=== PATIENT | female | born 1960 | race Hispanic/Latino ===

== ENCOUNTER 2019-11-27 07:14 | Day surgery (SDC) | payer OTHER ==
[~2019-11-27] VITALS: Ht 165.1 cm; Wt 90.7 kg
[~2019-11-27 07:14] MED LIST: CETI-89 PO; FLUT10SP NASAL; LEVO75TA4 PO; MOME13HF2 IH; MONT10TA21 PO; ROSU5TAB PO; SODIUM CHLORIDE 0.9% 1000ML 1,000 ML IV ONE
[2019-11-27 09:05] VITALS: BP 139/81
[2019-11-27] MEDS ORDERED: PROPOFOL 10 MG/ML 20ML VIAL IV ONE (10:07)
[2019-11-27 10:30] VITALS: BP 117/63
[2019-11-27 10:35] VITALS: BP 122/62
[2019-11-27 10:40] VITALS: BP 121/69
[2019-11-27 10:45] VITALS: BP 134/14
--- NOTE | 2019-11-27 11:00 | NUR ---
discharge pt and friend given d/c instructions. both voiced understanding. pt taken out via w/c in no distress.
== END 2019-11-27 11:10 | disposition home or self-care (01) ==
LOC: ENDO 07:14 → DAH 07:14 → ENDO 11:10
PROVIDERS: ATTEND Internal Medicine Gastroenterology
DX: Z12.11 Encounter for screening for malignant neoplasm of colon (principal); K29.50 Unspecified chronic gastritis without bleeding; K22.8 Other specified diseases of esophagus; R12 Heartburn; E78.2 Mixed hyperlipidemia; Z20.828 Contact with and (suspected) exposure to other viral communicable diseases; Z79.899 Other long term (current) drug therapy
CPT/HCPCS: 43239; 45378; A4215; A4221; A4222; A4223; A4606; A4620; A4657; A4663; C9803; J2704; J7030; U0003

== ENCOUNTER 2021-01-12 05:57 | Day surgery (SDC) | payer OTHER ==
[2021-01-06 16:10] LABS: BASOPHILS % (AUTO) 0.5 % (0.0-5.0); EOSINOPHILS % (AUTO) 4.6 % (0.0-8.0); HEMATOCRIT 43.6 % (36-48); LYMPHOCYTES % (AUTO) 32.8 % (21.0-51.0); MEAN CORPUSCULAR HEMOGLOBIN 28.2 pg (27.0-33.0); MEAN CORPUSCULAR HGB CONC 33.5 g/dL (32.0-36.0); MEAN CORPUSCULAR VOLUME 84.3 fL (79-99); MONOCYTES % (AUTO) 6.7 % (3.0-13.0); NEUTROPHILS % (AUTO) 55.3 % (40.0-77.0); PLATELET COUNT (AUTO) 284 K/uL (130-400); RED BLOOD CELL COUNT(AUTO) 5.17 MIL/uL (4.00-5.50); RED CELL DISTRIBUTION WIDTH 14.6 % (11.0-15.5); WHITE BLOOD COUNT (AUTO) 7.4 K/uL (4.8-10.8)
[2021-01-12] VITALS (24 sets, daily range): BP systolic 112–153; BP diastolic 49–79
[~2021-01-12] VITALS: Ht 165.1 cm; Wt 94.6 kg
[~2021-01-12 05:57] MED LIST changes: -FLUT10SP NASAL; +LEVO150 PO; -LEVO75TA4 PO; +LIOT5TAB11 PO; -MOME13HF2 IH; +ROSU40 PO; -ROSU5TAB PO; +SEMA14TA PO; -SODIUM CHLORIDE 0.9% 1000ML 1,000 ML IV ONE
[2021-01-12] MEDS ORDERED: PHENAZOPYRIDINE HCL 200 MG TABLET ONE (06:57)
[2021-01-12] MEDS ORDERED: ENOXAPARIN SODIUM 30 MG/0.3 ML SQ ONE (06:58)
[2021-01-12] MEDS ORDERED: LACTATED RINGERS 1000ML 1,000 ML IV ONE (07:12)
[2021-01-12] MEDS ORDERED: LIDOCAINE PF 100MG/5ML (2%) SYRINGE 5ML ONE (07:26)
[2021-01-12] MEDS ORDERED: ROCURONIUM 10MG/1ML SYR 10 MG/ML ML ONE ×2 (07:28→09:06)
[2021-01-12] MEDS ORDERED: PROPOFOL 10 MG/ML 20ML VIAL IV ONE (07:28)
[2021-01-12] MEDS ORDERED: FENTANYL CITRATE PF 50 MCG/1 ML 2ML VIAL ONE ×2 (07:28→11:05)
[2021-01-12] MEDS ORDERED: MIDAZOLAM HCL 1 MG/ML 2ML VIAL ONE (07:28)
[2021-01-12] MEDS: CEFAZOLIN SODIUM 1 GM VIAL IVP ONE ×2 (07:29→08:25)
[2021-01-12] MEDS ORDERED: ONDANSETRON 4MG INJ ONE ×3 (07:30→15:22)
[2021-01-12] MEDS ORDERED: METRONIDAZOLE 500 MG TABLET PO SCH (08:00)
[2021-01-12] MEDS ORDERED: PHENAZOPYRIDINE HCL 200 MG TABLET PO SCH (08:00)
[2021-01-12] MEDS ORDERED: BUPIVACAINE LIPOSOME/PF 266 MG/20 ML ML IV SCH (08:00)
[2021-01-12] MEDS ORDERED: DEXAMETHASONE SOD PHOSPHATE 10MG/ML 1ML VIAL ONE (08:12)
[2021-01-12] MEDS ORDERED: MAGNESIUM SULFATE 1 GM/2 ML VIAL ONE (08:31)
[2021-01-12] MEDS ORDERED: MEPERIDINE-PF 25 MG/ML SYG ONE ×3 (10:45→13:06)
[2021-01-12] MEDS ORDERED: GLYCOPYRROLATE 1 MG/5 ML SYRINGE ONE (11:02)
[2021-01-12] MEDS ORDERED: NEOSTIGMINE 5MG/5ML SYR IV ONE (11:02)
[2021-01-12] MEDS ORDERED: NALOXONE HCL 0.4 MG/1 ML ML ONE (13:20)
[2021-01-12] MEDS ORDERED: MORPHINE 2 MG SYG ONE (13:39)
[2021-01-12] MEDS ORDERED: ACETAMINOPHEN 500 MG TABLET ONE (15:23)
== END 2021-01-12 16:15 | disposition home or self-care (01) ==
LOC: DAH 05:57
PROVIDERS: ATTEND Obstetrics & Gynecology
DX: N95.0 Postmenopausal bleeding (principal); Z20.822 Contact with and (suspected) exposure to COVID-19; N72 Inflammatory disease of cervix uteri; N88.8 Other specified noninflammatory disorders of cervix uteri; N84.0 Polyp of corpus uteri; D25.1 Intramural leiomyoma of uterus; N83.292 Other ovarian cyst, left side; N83.291 Other ovarian cyst, right side; J45.909 Unspecified asthma, uncomplicated; E66.01 Morbid (severe) obesity due to excess calories; Z68.34 Body mass index [BMI] 34.0-34.9, adult; Z85.850 Personal history of malignant neoplasm of thyroid; Z83.3 Family history of diabetes mellitus; Z80.1 Family history of malignant neoplasm of trachea, bronchus and lung; Z80.43 Family history of malignant neoplasm of testis; Z82.5 Family history of asthma and other chronic lower respiratory diseases
CPT/HCPCS: 58571; S2900; 36415; 85025; 86850; 86900; 86901; 87635; 96372; A4344; C9290; C9803; J0690; J1100; J1650; J2001; J2175; J2250; J2310; J2405; J2704; J2710; J3010; J3475; J3490; J7030; J7120